=== PATIENT | female | born 1930 | race Caucasian/White ===

== ENCOUNTER 2017-03-08 10:39 | Emergency (ER) | payer MEDICARE, OTHER ==
[~2017-03-08] VITALS: Ht 154.9 cm; Wt 56.8 kg
[~2017-03-08 10:39] MED LIST: ACET-171 PO; ALBU8.5H2 INHALATION; ASCO1500 PO; ASPI-973 PO; CARB1TAB37 PO; CHOL40003 PO; CLIN-78 PO; DOCU-41 PO; FLUO40CA PO; HYDR-4003 PO; LORA0.5T PO; MIRT15TA6 PO; NABU500T PO; NITR0.4T SL; ONDA-53 PO; OXYC-474 PO; PEDI1TAB25 PO; POLY500P23 MC; ROPI12TA PO
[2017-03-08 11:12] VITALS: BP 181/78; PULSE 74; RESP 18; O2SAT 95
--- NOTE | 2017-03-08 11:19 | ED.REPORT ---
HPI-Abd Pain F 40 and Over Date of Service Mar 08, 2017 ED Provider: History of Present Illness: has seen kori for hernia. appointment next Saturday for surgery. hernia is bigger no hernia belt usage. mickey pina is primary care. lives at [facility] in [facility]. also complain of sob when the hernia got bigger around 9 am today. Nursing Notes Stated Complaint: ABD PAIN Chief Complaint: General Complaint Nursing Notes Reviewed: Yes Allergies: Coded Allergies: No Known Allergies (Unverified , 10/05/16) Scheduled Albuterol HFA (Proair HFA) 8.5 Gm Hfa.aer.ad 2 PUFFS INHALATION Q4H Ascorbic Acid (Vitamin C) 1,500 Mg Tablet.er 1,500 MG PO DAILY Aspirin (Aspirin) 81 Mg Tablet 81 MG PO DAILY Carbidopa/Levodopa ER 50-200 mg (Carbidopa/Levodopa ER 50-200 mg) 1 Each Tablet 0.5 TABLET PO BID Cholecalciferol (Vitamin D3) (Vitamin D3) 4,000 Unit Capsule 4,000 UNIT PO DAILY Clindamycin (Clindamycin) 300 Mg Capsule 300 MG PO TID Fluoxetine (Fluoxetine) 40 Mg Capsule 40 MG PO DAILY Mirtazapine (Mirtazapine) 15 Mg Tablet 15 MG PO HS Nabumetone (Nabumetone) 500 Mg Tablet 500 MG PO DAILY Pediatric Multivitamin Comb#30 (Gummies Children Multivitamin) 1 Each Tab.chew 1 EACH PO DAILY Polyethylene Glycol 8000 (Polyethylene Glycol) 500 Gm Powder 17 GM MC DAILY Ropinirole ER (Requip XL) 12 Mg Tablet 12 MG PO DAILY Scheduled PRN Acetaminophen (Acetaminophen) 500 Mg Tablet 500 MG PO Q6H PRN PRN For Fever Docusate Sodium (Colace) 100 Mg Capsule 100 MG PO DAILY PRN PRN For Constipation Hydrocodone-Acetaminophen 5-325 mg (Hydrocodone-Acetaminophen 5-325 mg) 1 Each Tablet 1 TABLET PO Q4H PRN PRN For Pain Lorazepam (Lorazepam) 0.5 Mg Tablet 0.5 MG PO BID PRN PRN For Insomnia Nitroglycerin SL (Nitrostat) 0.4 Mg Tab.subl 0.4 MG SL Q5MIN PRN PRN For Chest Pain Ondansetron (Ondansetron) 4 Mg Tablet 4 MG PO Q4H PRN PRN For Nausea/Vomiting Oxycodone (Roxicodone) 5 Mg Tablet 2.5 MG PO Q4H PRN PRN For Pain General Time Seen by MD: 11:19 Chief Complaint Abdominal pain Hx Obtained From: Patient Sudden in Onset?: No Symptom Duration: Since onset Location: : Abdomen lower Past Medical History Past Medical History parkinson's Denies: Asthma, Diabetes mellitus Past Surgical History abd surgery in 09/2016, mass did not identify any neoplasm Smoking History Former Smoker (quit 57 y) Social History Alcohol Use: Denies alcohol use Occupation [facility] Review of Systems Basic Review of Systems Eyes: Vision NL, No discharge Skin: No bruising, No rash, No itch Psychiatric: Normal thought content Physical Exam Vital Signs Vital Signs (First) Date Time Temp Pulse Resp B/P Pulse Ox O2 Delivery O2 Flow Rate FiO2 03/08/17 11:12 36.2 74 18 181/78 95 Room Air Initial VS: Reviewed, Vital signs normal Head / Eyes: Atraumatic, Normocephalic, PERRL Extremities: Vascular intact, Neuro intact, No swelling, No tenderness Psychiatric: Mood/affect normal, Behavior normal, Normal thought content General/Constitutional: Awake, Alert, No acute distress, Well appearing, Well developed, Well hydrated, Well nourished, Cooperative, Not toxic appearing Respiratory / Chest: Atraumatic, Breath sounds NL, Breath sounds = bilat, No respiratory distress, No rales, No rhonchi Cardiovascular: Heart rate NL, Regular rhythm, Heart sounds NL, No gallop abd is enlarged mainly on left side. no paplable hernia. Back: Atraumatic, Inspection NL, Full range of motion Interpretation & Diagnostics Interpretation & Diagnostics: INDICATIONS: abd hernia? TECHNIQUE: Real-time focused scanning was performed of the abdomen, with image documentation. COMPARISON: [facility], CT, CT ABD PELVIS W CON, 09/10/2016, 12:25. FINDINGS: Ultrasound was performed in the area of interest. No abdominal wall defect is present to suggest ventral hernia. There is a large cystic mass in the mid central abdomen/pelvis measuring 12.0 x 8.3 x 13.5 cm. No free fluid is present. IMPRESSION: Large cystic mass in mid central abdomen/pelvis. No ventral hernia is identified. Dictated by: Alessio Mir M.D. on 03/08/2017 at 13:54 Approved by: Alessio Mir M.D. on 03/08/2017 at 13:58 Lab Results Interpretation Result Diagram: 03/08/17 1145 03/08/17 1145 Test 03/08/17 11:45 White Blood Count 7.0th/mm3 (3.8-10.1) Red Blood Count 3.79mil/mm3 (3.90-5.20) Hemoglobin 12.0g/dL (12.0-15.6) Hematocrit 38.0% (35.0-46.0) Mean Corpuscular Volume 100.3fL (81-100) Mean Corpuscular Hemoglobin 31.7pg (27.0-35.0) Mean Corpuscular Hemoglobin Concent 31.6% (32.0-37.0) Red Cell Distribution Width 14.9% (12.3-15.4) Platelet Count 215bil/L (150-400) Neutrophils (%) (Auto) 77.3% (40-74) Lymphocytes (%) (Auto) 12.5% (14-46) Monocytes (%) (Auto) 7.4% (4-12) Eosinophils (%) (Auto) 2.4% (0-5) Basophils (%) (Auto) 0.3% (0-3) Sodium Level 142mEq/L (134-144) Potassium Level 5.2mEq/L (3.5-5.2) Chloride Level 107mEq/L (97-108) Carbon Dioxide Level 19mmol/L (18-29) Blood Urea Nitrogen 34mg/dL (8-27) Creatinine 0.96mg/dL (0.57-1.00) Estimat Glomerular Filtration Rate 79mL/min (>59) Glucose Level 97mg/dL (60-99) Lactic Acid Level 1.2mmol/L (0.4-2.0) Calcium Level 9.3mg/dL (8.5-10.1) Total Bilirubin 0.2mg/dL (0.0-1.2) Aspartate Amino Transf (AST/SGOT) 28U/L (0-50) Alanine Aminotransferase (ALT/SGPT) 6U/L (0-32) Alkaline Phosphatase 109U/L (25-165) Troponin T < 0.010ug/L (0.0-0.011) Total Protein 7.1g/dL (6.4-8.4) Albumin 4.3g/dL (3.4-5.0) X-Ray Chest Interpretation Chest Xray Interpretation: FINDINGS: Surgical changes and devices: None. Lungs and pleura: Linear densities in the left lung base are likely scars or discoid atelectasis. Lungs are lucent suggesting emphysema. There is a calcified nodule in the left lower lobe likely an old granuloma. Blunting of costophrenic angles may be secondary to small bilateral pleural effusions or pleural scarring. No pneumothorax. Mediastinum: Mediastinal contours are normal. Heart size is normal. Bones and chest wall: Severe scoliosis. Soft tissues appear unremarkable. IMPRESSION: 1. Suspect emphysema. 2. A calcified granuloma in the left lower lobe. 3. Bilateral small pleural effusions versus pleural scarring. 4. Left basilar scars and/or atelectasis. Dictated by: Alessio Mir M.D. on 03/08/2017 at 12:12 Approved by: Alessio Mir M.D. on 03/08/2017 at 12:15 CT Abd / Pelvis Interpretation ROCEDURE: CT ABDOMEN AND PELVIS WITH CONTRAST ([id number]) INDICATIONS: Increase in abdominal pain with suspected incarcerated hernia. TECHNIQUE: After the administration of oral and intravenous contrast, 5 mm thick sections acquired from the diaphragms to the symphysis. 5 mm thick coronal and sagittal reformats were performed. For radiation dose reduction, the following was used: automated exposure control, adjustment of mA and/or kV according to patient size. COMPARISON: [facility], CT, CT ABD PELVIS W CON, 09/10/2016, 12:25. FINDINGS: Image quality: Excellent. ABDOMEN: Lung bases: There is mild linear scarring redemonstrated in the lung bases bilaterally. Heart size is enlarged. Solid organs: There are multiple small low density foci within the liver which are too small to characterize redemonstrated. A small medial focus within segment 7 of the right hepatic lobe measures up to approximately 8 mm, slightly increased from the prior study. There are a few small foci of peripheral enhancement. Findings are suggestive of a small hemangioma. The spleen is normal in size. Multiple small low density lesions are also redemonstrated in the spleen with the largest measuring up to 1.7 cm. This demonstrates attenuation values higher than expected for a simple cyst but appears similar in size compared to the prior study given differences in slice acquisition. There are a few small dependent calcified gallstones in the gallbladder without wall thickening. Biliary system is non-dilated. Pancreas enhances normally. No adrenal nodules. Kidneys are normal in size and enhancement, without hydronephrosis. Peritoneum and bowel: Stomach, small bowel, and colon loops are normal in caliber and wall thickness. There is colonic diverticulosis without acute diverticulitis. Within the sigmoid colon, there is a round partially calcified intraluminal lesion which measures up to approximately 1.6 cm and appears slightly increased in size from the prior study. No free fluid or air. There is a rounded encapsulated focus of fat in the right upper quadrant posterior to the right hepatic lobe with fat stranding suggestive of focal fat necrosis. Nodes and vessels: No retroperitoneal or mesenteric adenopathy by size criteria. There is a mildly prominent right external iliac lymph node adjacent to the inguinal canal measuring up to 0.9 cm in short axis, similar in size to the prior study There is prominent dilatation of the inferior vena cava and visualized iliac veins. 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 The abdominal aorta is normal in caliber. Miscellaneous: No ventral hernias. PELVIS: Genitourinary: Bladder wall thickness is normal. Miscellaneous: There is a large cystic mass redemonstrated in the right lower quadrant measuring approximately 12.7 x 10.6 x 12.1 cm, similar in size compared to the prior study. There is an eccentric soft tissue rind redemonstrated suggesting an ovarian etiology. There is a small fat containing left inguinal hernia. No inguinal adenopathy. Bones: No suspicious bony lesions. There is osteopenia. No vertebral body compression fractures. IMPRESSION: 1. Large cystic mass redemonstrated within the right lower quadrant again suspicious for possible cystic ovarian neoplasm. 2. No evidence of recurrent right inguinal hernia. A small fat containing left inguinal hernia is demonstrated. 3. Colonic diverticulosis without acute diverticulitis. 4. Small round partially calcified lesion redemonstrated in the sigmoid colon in the left lower quadrant is nonspecific and may represent possible impacted stool. 5. Small low-density foci in the liver and spleen are nonspecific and include a small lesion in the posterior right hepatic lobe suggestive of a hemangioma. Recommend attention on followup. 6. 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 7. Cholelithiasis. Dictated by: Federico Shah M.D. on 03/08/2017 at 16:30 Approved by: Federico Shah M.D. on 03/08/2017 at 16:45 US Focused non-OB Pelvis PROCEDURE: US VEINOUS LEG DUPLEX UNILATERAL, LEFT INDICATIONS: leg is numb TECHNIQUE: Real-time imaging, as well as color and pulse Doppler interrogation, were performed of the lower extremity deep veins from the inguinal ligament to the popliteal fossa. COMPARISON: None. FINDINGS: The deep veins are normally compressible, and free of intraluminal thrombus. Color and pulse Doppler demonstrate normal phasic intraluminal flow. There is normal augmentation response to distal compression maneuver. IMPRESSION: No deep venous thrombosis identified within the left lower extremity. Dictated by: Janusz Wyman [facility] Interpreted: Vivienne Yusuf MD on 03/08/2017 at 16:06 Transcribed by: NICOLAS on 03/08/2017 at 16:07 Approved by: Vivienne Yusuf MD, PhD on 03/08/2017 at 16:43 Re-Eval/Medical Decision Med Decision/Clinical Course 86 year old female presents for evualation of "hernia pain" She feels it "popped out" earlier today. States was scheduled to see Kori earlier this year but had the flu. Has an appointment scheduled for next Saturday with DR. Wick to discuss surgery. Abd CT does not reveal any acute changes. Chest x-ray is negative. Labs are unremarkable. No sign of ovarian torsion or c-diff collitis Source of Hx: Old records Discharge & Departure Primary Impression: Mass of right inguinal region Disposition: Home Patient Instructions: High Fiber Diet (ED) Additional Instructions: The labs are looking good. No sign to suggest acute infection. The CT does show the large mass in the pelvic area. It remains the same size. The CT does show a small fat hernia on the left but no sign of strangulation at this time. Please keep the appointment that has been scheduled with Dr. Wick on Saturday. If you have vomiting, fever or pain out of control, return to the ER. The chest x-ray looks good. The ultrasound does not show any evidence of a clot. You do have good blood flow in the left leg. Use percoet 1 up to 3 times a day as needed for pain control. Read the high fiber food list and make sure you have lots of fiber in your diet. Continue with your bowel program. Referrals: Mickey Pina (PCP) Branden Wick MD EDSupervising Provider for APC: Ross Cao MD copies to: Branden Wick MD, Sue ARNP Mar 08, 2017 11:19
[2017-03-08 11:58] LABS: BASOPHILS % (AUTO) 0.3 % (0-3); EOSINOPHILS % (AUTO) 2.4 % (0-5); MONOCYTES % (AUTO) 7.4 % (4-12); Mean Corpuscular Hemoglobin 31.7 pg (27.0-35.0); Mean Corpuscular Volume 100.3 fL (81-100); NEUTROPHILS % (AUTO) 77.3 % (40-74); Platelet Count 215 bil/L (150-400)
--- NOTE | 2017-03-08 12:17 | DRSVH ---
PROCEDURE: X-RAY CHEST, TWO VIEWS ([id number]) INDICATIONS: SHORTNESS OF BREATH TECHNIQUE: 2 views of the chest were acquired. COMPARISON: [facility], CR, XR CHEST 2VW, 08/21/2016, 14:42. FINDINGS: Surgical changes and devices: None. Lungs and pleura: Linear densities in the left lung base are likely scars or discoid atelectasis. Korina ngs are lucent suggesting emphysema. There is a calcified nodule in the left lower lobe likely an old granuloma. Blunting of costophrenic angles may be secondary to small bilateral pleural effusions or pleural scarring. No pneumothorax. Mediastinum: Mediastinal contours are normal. Heart size is normal. Bones and chest wall: Severe scoliosis. Soft tissues appear unremarkable. IMPRESSION: 1. Suspect emphysema. 2. A calcified granuloma in the left lower lobe. 3. Bilateral small pleural effusions versus pleural scarring. 4. Left basilar scars and/or atelectasis. Dictated by: Alessio Mir M.D. on 03/08/2017 at 12:12 Approved by: Alessio Mir M.D. on 03/08/2017 at 12:15
[2017-03-08 12:38] LABS: TROPONIN T < 0.010 ug/L (0.0-0.011)
--- NOTE | 2017-03-08 14:00 | DRSVH ---
PROCEDURE: US ABDOMEN, LIMITED ([id number]) INDICATIONS: abd hernia? TECHNIQUE: Real-time focused scanning was performed of the abdomen, with image documentation. COMPARISON: [facility], CT, CT ABD PELVIS W CON, 09/10/2016, 12:25. FINDINGS: Ultrasound was performed in the area of interest. No abdominal wall defect is present to garzon ggest ventral hernia. There is a large cystic mass in the mid central abdomen/pelvis measuring 12.0 x 8.3 x 13.5 cm. No free fluid is present. IMPRESSION: Large cystic mass in mid central abdomen/pelvis. No ventral hernia is identified. Dictated by: Alessio Mir M.D. on 03/08/2017 at 13:54 Approved by: Alessio Mir M.D. on 03/08/2017 at 13:58
--- NOTE | 2017-03-08 16:07 | DRSVH ---
PROCEDURE: US VEINOUS LEG DUPLEX UNILATERAL, LEFT INDICATIONS: leg is numb TECHNIQUE: Real-time imaging, as well as color and pulse Doppler interrogation, were performed of the lower extr emity deep veins from the inguinal ligament to the popliteal fossa. COMPARISON: None. FINDINGS: The deep veins are normally compressible, and free of intraluminal thrombus. Color and pu lse Doppler demonstrate normal phasic intraluminal flow. There is normal augmentation response to di stal compression maneuver. IMPRESSION: No deep venous thrombosis identified within the left lower extremity. Dictated by: Janusz Wyman [facility] Interpreted: Vivienne Yusuf MD on 03/08/2017 at 16:06 Transcribed by: NICOLAS on 03/08/2017 at 16:07 Approved by: Vivienne Yusuf MD, PhD on 03/08/2017 at 16:43
[2017-03-08 16:13] VITALS: BP 136/69; PULSE 78; RESP 19; O2SAT 97
--- NOTE | 2017-03-08 16:49 | DRSVH ---
PROCEDURE: CT ABDOMEN AND PELVIS WITH CONTRAST ([id number]) INDICATIONS: Increase in abdominal pain with suspected incarcerated hernia. TECHNIQUE: After the administration of oral and intravenous contrast, 5 mm thick sections acquired from the diap hragms to the symphysis. 5 mm thick coronal and sagittal reformats were performed. For radiation do se reduction, the following was used: automated exposure control, adjustment of mA and/or kV accordi ng to patient size. COMPARISON: [facility], CT, CT ABD PELVIS W CON, 09/10/2016, 12:25. FINDINGS: Image quality: Excellent. ABDOMEN: Lung bases: There is mild linear scarring redemonstrated in the lung bases bilaterally. Heart size i s enlarged. Solid organs: There are multiple small low density foci within the liver which are too small to ava acterize redemonstrated. A small medial focus within segment 7 of the right hepatic lobe measures up to approximately 8 mm, slightly increased from the prior study. There are a few small foci of perip heral enhancement. Findings are suggestive of a small hemangioma. The spleen is normal in size. Mu ltiple small low density lesions are also redemonstrated in the spleen with the largest measuring up to 1.7 cm. This demonstrates attenuation values higher than expected for a simple cyst but appears s imilar in size compared to the prior study given differences in slice acquisition. There are a few s mall dependent calcified gallstones in the gallbladder without wall thickening. Biliary system is no n-dilated. Pancreas enhances normally. No adrenal nodules. Kidneys are normal in size and enhancem ent, without hydronephrosis. Peritoneum and bowel: Stomach, small bowel, and colon loops are normal in caliber and wall thickness . There is colonic diverticulosis without acute diverticulitis. Within the sigmoid colon, there is a round partially calcified intraluminal lesion which measures up to approximately 1.6 cm and appears slightly increased in size from the prior study. No free fluid or air. There is a rounded encapsul ated focus of fat in the right upper quadrant posterior to the right hepatic lobe with fat stranding suggestive of focal fat necrosis. Nodes and vessels: No retroperitoneal or mesenteric adenopathy by size criteria. There is a mildly prominent right external iliac lymph node adjacent to the inguinal canal measuring up to 0.9 cm in sh ort axis, similar in size to the prior study There is prominent dilatation of the inferior vena cava and visualized iliac veins. There is mild aneurysmal dilatation of the distal descending thoracic ao rta at the level of the diaphragmatic hiatus measuring up to 3.1 cm. The abdominal aorta is normal i n caliber. Miscellaneous: No ventral hernias. PELVIS: Genitourinary: Bladder wall thickness is normal. Miscellaneous: There is a large cystic mass redemonstrated in the right lower quadrant measuring joel roximately 12.7 x 10.6 x 12.1 cm, similar in size compared to the prior study. There is an eccentric soft tissue rind redemonstrated suggesting an ovarian etiology. There is a small fat containing lef t inguinal hernia. No inguinal adenopathy. Bones: No suspicious bony lesions. There is osteopenia. No vertebral body compression fractures. IMPRESSION: 1. Large cystic mass redemonstrated within the right lower quadrant again suspicious for possible cy stic ovarian neoplasm. 2. No evidence of recurrent right inguinal hernia. A small fat containing left inguinal hernia is d emonstrated. 3. Colonic diverticulosis without acute diverticulitis. 4. Small round partially calcified lesion redemonstrated in the sigmoid colon in the left lower quad rant is nonspecific and may represent possible impacted stool. 5. Small low-density foci in the liver and spleen are nonspecific and include a small lesion in the posterior right hepatic lobe suggestive of a hemangioma. Recommend attention on followup. 6. 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 7. Cholelithiasis. Dictated by: Federico Shah M.D. on 03/08/2017 at 16:30 Approved by: Federico Shah M.D. on 03/08/2017 at 16:45
[2017-03-08] MEDS ORDERED: oxyCODONE-Acetamin 5-325 mg Tablet PO ONE (17:50)
== END 2017-03-08 19:00 | disposition home or self-care (01) ==
LOC: SED 10:39 → EDBD 10:39 → EDUNIT# 10:39 → SED 19:00
DX: R19.09 Other intra-abdominal and pelvic swelling, mass and lump (principal); R06.02 Shortness of breath; Z87.891 Personal history of nicotine dependence; Z79.82 Long term (current) use of aspirin
CPT/HCPCS: 36415; 71020; 74177; 76705; 80053; 83605; 84484; 85025; 93005; 93970; 99285; Q9967

== ENCOUNTER 2017-04-01 05:51 | Day surgery (SDC) | payer MEDICARE, OTHER ==
[~2017-04-01] VITALS: Ht 154.9 cm; Wt 60.1 kg
[2017-04-01] VITALS (16 sets, daily range): BP systolic 100–150; BP diastolic 52–86; PULSE 51–91; RESP 11–22; O2SAT 92–98
[~2017-04-01 05:51] MED LIST changes: +Lactated Ringer's 1,000 ML IV ONE
[2017-04-01] MEDS ORDERED: Lidocaine PF 1% 30 mL Inj ONE (05:52)
[2017-04-01] MEDS ORDERED: fentaNYL-PF 50 mCg/mL 2 mL Inj ONE (05:52)
[2017-04-01] MEDS ORDERED: Rocuronium 10 mg/mL 5 mL Inj ONE (05:52)
[2017-04-01] MEDS ORDERED: Propofol 10,000 mCg/mL 20 mL Inj ONE (05:52)
[2017-04-01] MEDS ORDERED: Succinylcholine Chloride 20 mg/mL 5 mL Inj ONE (05:52)
[2017-04-01] MEDS ORDERED: EPHEDrine/NS 5 mg/mL 5 mL Syringe ONE (05:52)
[2017-04-01] MEDS ORDERED: Dexamethasone 4 mg/mL Inj ONE (05:52)
[2017-04-01] MEDS ORDERED: Ondansetron 2 mg/mL 2 mL Inj ONE (05:52)
[2017-04-01] MEDS ORDERED: CeFAZolin Inj 2 GM in IV Premix 1 EACH IV ONE (06:00)
[2017-04-01] MEDS ORDERED: RANI150C4 PO (06:53)
[2017-04-01] MEDS ORDERED: SENN-133 PO (06:53)
[2017-04-01] MEDS ORDERED: FLUO40CA PO (06:58)
[2017-04-01] MEDS ORDERED: DOCU250C2 PO (06:58)
[2017-04-01] MEDS ORDERED: OXYC-474 PO (07:04)
[2017-04-01] MEDS ORDERED: PARO20TA5 PO (07:04)
--- NOTE | 2017-04-01 07:15 | PCM.HPANE ---
Patient Data Surgeon Admitting Provider: Attending Provider:Branden Wick MD Primary Care Physician:Tanisha Shepherd Other Provider:Russell Wan Anesthesia Reason for Visit Pelvic Mass, Calculus Of Gallbladder Ht/WT & BMI Height (Feet): 5 Height (Inches): 1.00 Weight (Kilograms): 60.1 Body Mass Index 25.00 Allergies Coded Allergies: No Known Allergies (Unverified , 10/05/16) Past Anesthesia History Anesthesia History: Denies:: Anesthesia Reactions, Fam Anesthesia Reaction Diabetes History Hx Diabetes?: No MRSA MRSA: No Medications Blood Thinner: Aspirin Home Meds Incl Beta Micaela: No Reported Medications Oxycodone (Roxicodone)5 Mg Tablet2.5 Mg PO Q4H PRN For Pain Ref 0 04/01/17 Paroxetine 20 Mg Nvqwhk60 Mg PO DAILY 30 Days Ref 0 04/01/17 Docusate Sodium 250 Mg Defkoks839 Mg PO BID Ref 0 04/01/17 Sennosides (Senna)8.6 Mg Tablet2 Tab PO BID 04/01/17 Ranitidine 150 Mg Qrpcffl849 Mg PO BID Ref 0 04/01/17 Acetaminophen 500 Mg Fdjpms370 Mg PO Q6H PRN For Fever 09/19/16 Nitroglycerin SL (Nitrostat)0.4 Mg Tab.subl0.4 Mg SL Q5MIN PRN For Chest Pain # 1 BOTTLE 09/19/16 Albuterol HFA (Proair HFA)8.5 Gm Hfa.aer.ad2 Puffs INHALATION Q4H #1 INHALER 09/19/16 Ondansetron 4 Mg Tablet4 Mg PO Q4H PRN For Nausea/Vomiting 09/19/16 Hydrocodone-Acetaminophen 5-325 mg 1 Each Tablet1 Tablet PO Q4H PRN For Pain Ref 0 09/19/16 Mirtazapine 15 Mg Dgtdrl86 Mg PO HS Ref 0 09/19/16 Lorazepam 0.5 Mg Tablet1 Mg PO BID PRN For Insomnia Ref 0 09/19/16 Carbidopa/Levodopa ER 50-200 mg 1 Each Tablet0.5 Tablet PO BID 09/19/16 Clindamycin 300 Mg Rcjbtrb965 Mg PO TID Ref 0 09/19/16 Cholecalciferol (Vitamin D3) (Vitamin D3)4,000 Unit Capsule4,000 Unit PO DAILY 09/19/16 Ascorbic Acid (Vitamin C)1,500 Mg Tablet.er1,500 Mg PO DAILY 09/19/16 Polyethylene Glycol 8000 (Polyethylene Glycol)500 Gm Hrdlom21 Gm MC DAILY 09/19/16 Nabumetone 500 Mg Zdhnjd133 Mg PO DAILY 30 Days 09/19/16 Aspirin 81 Mg Wfcdlk23 Mg PO DAILY Ref 0 09/19/16 Pediatric Multivitamin Comb#30 (Gummies Children Multivitamin)1 Each Tab.chew1 Each PO DAILY 09/19/16 Discontinued Reported Medications Fluoxetine 40 Mg Vwzfpka30 Mg PO DAILY Ref 0 04/01/17 Ropinirole ER (Requip XL)12 Mg Wdcjht82 Mg PO DAILY Ref 0 09/19/16 Fluoxetine 40 Mg Aflcxvn35 Mg PO DAILY Ref 0 09/19/16 Docusate Sodium (Colace)100 Mg Zgxpjza211 Mg PO DAILY PRN For Constipation Ref 0 09/19/16 Discontinued Scripts Oxycodone (Roxicodone)5 Mg Tablet2.5 Mg PO Q4H PRN For Pain #20 TABLET Ref 0 Prov:Branden Wick MD 10/08/16 Last Time Dose Received Takes oxycodone about 4 times/dd Took carbadopa/levadopa today Takes ativan twice/dd History History of ENT Problems?: Yes HEENT History: Positive for:: Cataracts (right eye) Hearing Problem Denture Type: None Teeth Condition: Within Normal Limits Hx of Heart Problems?: No Cardiovascular History: Denies:: Congestive Heart Failure Hypertension Hx of Respiratory Problem?: Yes Respiratory History: Denies:: Oxygen Administration Tuberculosis Use of C-PAP Machine Hx Neurologic Problems?: Yes Neurological History: Positive for:: CVA (2008) Parkinson's Disease (caregiver states spasmodic body movements have been increasing) Denies:: Alzheimer's Disease Multiple Sclerosis Seizures Hx of GI Problems?: Yes Other GI Pertinent History: cystic mass in pelvis current admission problem Hx of Problems?: Yes Genitourinary History: Denies:: Urinary Tract Infection (hx of) Female Hx: Denies:: Currently (hysterectomy) Pelvic Inflammatory Problems with Breasts? Skin History: Denies:: History Skin Disorders? 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) Musculoskeletal Trauma (hx of bilateral foot surgery) Hx of Psycho/Social Problems?: Yes Psycho Social History: Positive for:: Anxiety Hx Depression Hx Surgeries?: Yes (hyst/bladder sling, rt/left foot surgery, right total knee , hernia) Hx Any Other Health Problems?: Yes Other History: Denies:: Cancer Thyroid Disease Hx Diabetes: No Hx Alcohol Use: NoHx Substance Use: No Smoking Status: Former Smoker Have You Smoked inLast 12 mo: No Stop/Bang S-Snoring: Do You Snore Loudly: No T-Tired: feel tired, fatigued: Yes O-Obsered: Observed not breath: No P-Blood Pressure: treated: No B- Body Mass Index > 35 kg/m2: No A- Age over 50: Yes N- Neck Large Circumference: No G- Gender Male: No ALMA Total Score: 2 Risk Assessment Category Category 1A: Patient has history of documented sleep apnea, and HAS NOT received any narcotic, sedative or anesthesia administration during this stay. Category 1B: Patient has history of documented sleep apnea, and HAS received any narcotic , sedative or anesthesia administration during this stay Category 2: Patient has SUSPECTED Obstructive Sleep Apnea, and HAS received any narcotic , sedative or anesthesia administration during this stay. Category 3: Patient has SUSPECTED Obstructive Sleep Apnea and HAS NOT received narcotic, sedative or anesthesia administration during this stay. Category 4: Outpatient in Procedural Areas with known sleep apnea or who screen positive for High Risk via the STOP/BANG questionnaire. Exam Exam Vital Signs Vital Signs Date Time Temp Pulse Resp B/P Pulse Ox O2 Delivery O2 Flow Rate FiO2 04/01/17 06:33 35.8 71 16 150/81 96 Room Air General Appearance: Alert, Oriented X3 HEENT/AIRWAY: MP 2, Neck Movement (FROM) Lungs: Clear to Auscultation, Clear to Percussion Heart: Exam Unremarkable, Regular Rate/Rhythm Meds/Labs/Diagnostics Admission Meds Current Medications Lactated Ringer's (Lr) 1,000 ml @ 120 mls/hr Q8H20M ONCE IV Last administered on 04/01/17t 06:32; Start 04/01/17 at 05:00; Stop 04/01/17 at 13:19 Plan Impression Patient chart reviewed, patient interviewed and anesthestic plan with risks, benefits, and alternatives discussed, and informed consent obtained. ASA Physical Status: ASA3 Severe Disease Anesthetic Plan: GA Bene/Risks/Altern/Consents: Yes HP Complete Prior to Induction: Yes George Ambrocio MD April 01, 2017 07:12
[2017-04-01] MEDS ORDERED: Bupivacaine-MPF 0.5% 30 mL Inj INJ ONE (08:01)
[2017-04-01] MEDS ORDERED: Iopamidol-300 50 mL Inj IV ONE (08:01)
[2017-04-01] MEDS ORDERED: Ondansetron 2 mg/mL 2 mL Inj IVPUSH PRN ×2 (08:05→11:05)
[2017-04-01] MEDS ORDERED: Lactated Ringer's 1,000 ML IV SCH (08:05)
[2017-04-01] MEDS ORDERED: HYDROmorphone 1 mg/mL Inj IVPUSH PRN (08:05)
[2017-04-01] MEDS ORDERED: Labetalol 5 mg/mL 4 mL Inj IV PRN (08:05)
[2017-04-01] MEDS ORDERED: Atropine 0.4 mg/mL Inj IVPUSH PRN (08:05)
[2017-04-01] MEDS ORDERED: EPHEDrine Sulfate 50 mg/mL Inj IVPUSH PRN (08:05)
[2017-04-01] MEDS ORDERED: Lactated Ringer's 500 ML IV PRN (08:05)
[2017-04-01] MEDS ORDERED: Phenylephrine 10,000 mCg/mL Inj IVPUSH PRN (08:05)
[2017-04-01] MEDS ORDERED: fentaNYL-PF 50 mCg/mL 2 mL Inj IVPUSH PRN (08:05)
[2017-04-01 09:12] LABS: APPEARANCE,URINE HAZY (CLEAR,HAZY); COLOR,URINE STRAW (YELLOW)
[2017-04-01 09:13] LABS: OCCULT BLOOD,URINE NEGATIVE (NEGATIVE); UROBILINOGEN,URINE NORMAL (NORMAL)
[2017-04-01] MEDS ORDERED: MetoCLOpramide 5 mg/mL 2 mL Inj IVPUSH PRN (11:05)
[2017-04-01] MEDS ORDERED: HYDROmorphone 0.5 mg/0.5 mL iSecure Syringe IVPUSH PRN (11:05)
[2017-04-01] MEDS: Albuterol 2.5 mg/3 mL Inhalation Solution NEB SCH ×3 (11:05→19:05)
--- NOTE | 2017-04-01 11:15 | PCM.SURGPO ---
Immediate Operative Note Date of Surgery: April 01, 2017 Pre Operative Diagnosis Cystic Pelvic Mass, Cholelithiasis Post Operative Diagnosis Cystic Pelvic mass, Cholelithiasis Procedure Laparoscopic Excision of Pelvic Mass, Lap Cholecystectomy with cholangiogram Surgeon and Filtration Plant Mechanic Surgeon: Branden Wick MD Assistants: Fie Hammer, ИРИНА Peraza MS3 Findings R Pelvic Cystic Mass Attached to the retroperitoneum. Cholangiogram okay Complications There were no periprocedural complications identified. Surgical Specimen Removed: Yes Specimen sent to Pathology: Yes Anesthetic Administered: GA Grafts, Implants: None Output, Estimated Blood Loss: 5 Blood Admin during surgery: No Attending Statement Tassel Clipper listed was medically necessary for the successful completion of the case Branden Wick MD April 01, 2017 11:15
--- NOTE | 2017-04-01 11:50 | DRSVH ---
PROCEDURE: X-RAY OPERATIVE CHOLANGIOGRAM ([id number]) INDICATIONS: PELVIC PAIN, CALCULUS OF GALLBALDDER COMPARISON: [facility], CT, CT ABD PELVIS W CON, 03/08/2017, 15:52. FINDINGS: Biliary ducts: The surgeon injected contrast into the biliary ducts after cannulation of the cystic duct stump. Visualized intra- and extrahepatic bile ducts are normal in caliber, without strictures. Rounded intraluminal filling defect seen within the mid common hepatic duct which may represent gas bubble given the appearance. No evidence for iatrogenic ductal injury. 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 Duodenum: Contrast flows promptly through the sphincter of Oddi into the duodenum, which appears nor mal in caliber. IMPRESSION: 1. Probable gas bubble within the extrahepatic bile duct. Correlate with real-time examination. 2. 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 Dictated by: Janusz Wyman Thomas Interpreted: Cristian Gunderson MD on 04/01/2017 at 11:48 Transcribed by: RAMONA on 04/01/2017 at 11:50 Approved by: Cristian Gunderson M.D. on 04/01/2017 at 16:25
--- NOTE | 2017-04-01 12:07 | PCM.ANEP1 ---
Post Anesthesia Phase 1 PACU Phase 1 Assessment Date of Service: April 01, 2017 Vital Signs Vital Signs Date Time Temp Pulse Resp B/P Pulse Ox O2 Delivery O2 Flow Rate FiO2 04/01/17 11:45 36.3 68 16 127/62 98 Simple Mask 8 04/01/17 11:40 68 16 130/62 98 Simple Mask 8 04/01/17 11:35 66 16 120/58 98 Simple Mask 8 04/01/17 11:30 66 16 121/61 98 Simple Mask 8 04/01/17 11:25 70 17 112/58 98 Simple Mask 8 04/01/17 11:18 36.6 69 16 135/59 98 Simple Mask 8 04/01/17 06:33 35.8 71 16 150/81 96 Room Air Anesthetic Administered: GA Level of Alertness: Sleepy, easy to arouse DOMÍNGUEZ's with Equal Strength: Yes Pain: No Nausea or Vomiting: No Cardiovascular Function and Hy: Yes Airway Device: Oralpharangeal Airway Oxygen Delivery: Simple Mask Lungs: Clear to Auscultation, Clear to Percussion Complications: No Follow up Care: No George Ambrocio MD April 01, 2017 12:07
[2017-04-01 12:11] LABS: Mean Corpuscular Hemoglobin 32.1 pg (27.0-35.0); Mean Corpuscular Volume 100.9 fL (81-100)
--- NOTE | 2017-04-01 13:06 | NUR ---
POST-OP Patient received from PACU via a gurney. Transferred to the bed with assist. On O2 at 7 LPM via a simple mask. Will wean off O2. 6 bandaid dressing noted in her abdomen. Via FELDT scale patients pain level is 0/10. Denies nausea. No emesis noted. Denies SOB. Unable to orient at this time due to drowsiness. Bed alarm is on at this time for safety. Will continue to monitor.
[2017-04-01] MEDS: Carbidopa-Levodopa 50-200 mg ER12 Tablet PO SCH (17:41)
--- NOTE | 2017-04-01 21:51 | OP ---
[address] [address] OPERATIVE REPORT PATIENT: RYLIE IVERSON : 1930 MR#: [id number] ADMIT: 04/01/2017 JOB ID: [id number] DATE OF SURGERY: 04/01/2017 PREOPERATIVE DIAGNOSIS(ES): Cystic mass in the pelvis and cholelithiasis. POSTOPERATIVE DIAGNOSIS(ES): Cystic mass in the pelvis and cholelithiasis. PROCEDURE PERFORMED: Laparoscopic cholecystectomy with intraoperative cholangiogram. Laparoscopic excision of cystic mass in the pelvis. SURGEON: Branden Wick MD. EDGE MOLDER: CHRISTIAN Jaimes, MS3. ESTIMATED BLOOD LOSS: 5 mL. COMPLICATIONS: She had transient high end-tidal carbon dioxide in the middle of the case, prompting us to exsufflate and ventilate her before resuming the operation, otherwise, she did okay. INDICATIONS: The patient is an 86-year-old lady who had a hysterectomy and bladder sling through a lower midline incision a long time ago. She noticed swelling on the left side of her abdominal wall consistent with a hernia and she presented to me for possible repair. I obtained a CT scan of the abdomen and pelvis which showed cystic mass in the pelvis and the right inguinal region. I removed the right inguinal mass in September, but she continued to have abdominal symptoms and after discussing the risks, benefits, and alternatives, she is here today to have the laparoscopic resection of the pelvic mass, along with laparoscopic cholecystectomy with cholangiogram. PROCEDURE DETAILS: She was placed in a supine position. Underwent smooth induction of general anesthesia. A Menjivar catheter was placed. Abdomen was prepped and draped in the usual sterile fashion. Surgical time-out was undertaken using safety checklist, and all were in agreement. I began by entering the abdomen using a supraumbilical incision using open Giovanny technique. After obtaining pneumoperitoneum, I placed two 5 mm ports, one in the epigastrium, another one in the left lateral abdomen under direct vision. We visualized the large pelvic cystic structure and then aspirated it with a needle and started dissecting it off the retroperitoneum. It was not attached to the bladder or the bowel. I was able to mobilize it off the peritoneum to some extent but after which the retroperitoneal vasculature was densely adherent to it, prompting me to use LigaSure to transect them with good hemostasis. After removing the lesion, detaching it from the retroperitoneum, I used some FloSeal in the retroperitoneal bed for good hemostasis. I was able to visualize the ureter laterally which appeared far from the area of surgical dissection. I then directed my attention to the gallbladder, placing additional 5 mm ports in the right upper quadrant under direct vision. I retracted the gallbladder cephalad and to the right, dissecting the triangle of Calot. I then clipped the cystic duct towards the specimen and obtained a cholangiogram which showed normal anatomy. I then doubly clipped the cystic duct and was proceeding to dissect the gallbladder off the liver bed. At that time, we had some high end-tidal carbon dioxide prompting us to stop the operation temporarily. We did not notice any undue bleeding. After some inflation, we were able to resume the operation with the lower insufflation pressures and I then detached the gallbladder from the liver, placed it in an EndoCatch bag, and removed it. I also removed the cystic pelvic mass in an EndoCatch bag. The sponge we used in the pelvis putting pressure on the retroperitoneal vasculature was also removed. All the instrument counts were found to be correct x2. After that, the abdomen was desufflated. The supraumbilical port site fascia was closed with [id number] 0-Vicryl suture. The skin was reapproximated with 4-0 Monocryl. Steri-Strips and sterile dressing were applied. Patient was recovered from anesthesia and was taken to the recovery room in a stable condition.
[2017-04-02 00:14] VITALS: PULSE 88; RESP 22; O2SAT 92
[2017-04-02] MEDS: Albuterol 2.5 mg/3 mL Inhalation Solution NEB SCH ×4 (00:14→11:50)
--- NOTE | 2017-04-02 00:35 | NUR ---
Pain/flatulence Patient states leg and abdomen pain is 7/10 on pain scale. Oxycodone 5mg PO administered. Patient requesting Lorazepam but medication is not on emar. Will contact physician re home med. Patient experiencing gas/flatulence. Explain to patient this was normal post abdominal surgery. Patient cooperative with care. Call light within reach. Care continues.
[2017-04-02 04:33] VITALS: PULSE 77; RESP 20; RESP 22; O2SAT 94
[2017-04-02 06:01] VITALS: BP 121/54; PULSE 85; RESP 12; O2SAT 91
[2017-04-02 06:50] LABS: BASOPHILS % (AUTO) 0.1 % (0-3); EOSINOPHILS % (AUTO) 0.3 % (0-5); MONOCYTES % (AUTO) 11.1 % (4-12); Mean Corpuscular Volume 100.3 fL (81-100); NEUTROPHILS % (AUTO) 73.6 % (40-74); Platelet Count 180 bil/L (150-400)
--- NOTE | 2017-04-02 07:49 | PCM.DISURG ---
Surgical Discharge Instruction Date of Service April 02, 2017 Dates of Hospitalization Date of Hospital Admission Providers Admitting Physician: Primary Care Physician: Tanisha Shepherd Attending Physician: Branden Wick MD Discharge Diagnosis Post Operative diagnosis Cystic Pelvic mass, Cholelithiasis s/p Laparoscopic Resection of Pelvic Mass, Cholecystectomy with Cholangiogram Diet Discharge Diet: No restrictions Activity Discharge Activity-General: Be up and about Dressing and Incisional Care Dressing Care: Remove outer dressing after 24 hrs Hygiene: May shower Follow Up Plan Follow-up appointment: Weeks (2) Call your provider for: Fever, Chills, Shortness of breath, Increasing abdominal pain, Nausea, Vomiting, Wound redness, Increasing wound pain, Warmth to touch, Discharge @ incision, pus discharge Branden Wick MD April 02, 2017 07:49
[2017-04-02 08:15] VITALS: PULSE 75; RESP 22; O2SAT 89
[2017-04-02] MEDS ORDERED: Polyethylene Glycol (PEG) 17 Gm Powder PO SCH (08:30)
[2017-04-02] MEDS ORDERED: PARoxetine 20 mg Tablet PO SCH (08:30)
--- NOTE | 2017-04-02 09:02 | PCM.PNSURG ---
Subjective Date of Service: April 02, 2017 Visit Information: Pelvic Mass Resection & Laparoscopic Cholecystectomy with 04/01/17 Post-Op Day # 1 Subjective: Tolerating diet, Passing flatus Objective Vital Sign- Last 8 Hours Date Time Temp Pulse Resp B/P Pulse Ox O2 Delivery O2 Flow Rate FiO2 04/02/17 08:15 75 22 89 Room Air 04/02/17 06:01 36.4 85 12 121/54 91 Nasal Cannula 2.00 04/02/17 04:51 Supplement Oxygen 04/02/17 04:33 77 20 94 Nasal Cannula 2.00 Intake and Output- Last 8 Hour 04/02/17 Cumulative From/Thru 07:00 03/27/17 15:15 - 04/02/17 06:08 Intake Total 0 ml 1750 ml Output Total 100 ml 410 ml Balance -100 ml 1340 ml Intake Oral 0 ml 500 ml IV Total 1250 ml Output Urine Total 100 ml 400 ml Estimated Blood Loss 10 ml # Bowel Movements 0 0 Abdomen: Soft, Other (Some what bloated) SURGICAL WOUND : Wound Location/Description Dressings dry Result Diagram: 04/02/1751904/02/1720 Diagnostics: Abd Xray looks okay with a lot of stool Assessment & Plan Impression Doing well Problems: Plan Ambulate,Incentive spirometry Wean off Oxygen Regular diet Enema/suppository/ laxatives Discharge Home Branden Wick MD April 02, 2017 09:02
[2017-04-02] MEDS: Carbidopa-Levodopa 50-200 mg ER12 Tablet PO SCH (10:05)
--- NOTE | 2017-04-02 11:05 | DRSVH ---
PROCEDURE: X-RAY ACUTE ABDOMINAL SERIES ([id number]) INDICATIONS: Postop Distension TECHNIQUE: One view chest and two views of the abdomen were acquired. COMPARISON: , CT, CT ABD PELVIS W CON, 03/08/2017, 15:52. [facility], CR, XR CHEST 2VW, 03/08/2017, 11:42. FINDINGS: Surgical changes and devices: None. Chest: There is chronic blunting of the costophrenic angles and scarlike opacities unchanged from gilles or chest radiograph.. Heart size is normal. No pleural effusions. No pneumoperitoneum. Abdomen: Moderate amount of colonic stool is present otherwise gas pattern is normal. Multiple abdom inal and pelvic calcifications redemonstrated. Bones: No suspicious bony lesions. Mild S-shaped scoliosis redemonstrated. IMPRESSION: 1. Chronic blunting of the costophrenic angles and bibasilar scarring redemonstrated. 2. Moderate fecal loading. 3. Abdominal/pelvic calcifications similar to prior CT scan. Dictated by: Janusz Wyman RR Interpreted: Vivienne Yusuf MD on 04/02/2017 at 10:56 Transcribed by: NICOLAS on 04/02/2017 at 11:00 Approved by: Vivienne Yusuf MD, PhD on 04/02/2017 at 15:06
[2017-04-02 11:50] VITALS: PULSE 76; RESP 20; O2SAT 95
--- NOTE | 2017-04-02 13:11 | NUR ---
DC'd IV catheter, fully intact.
--- NOTE | 2017-04-02 14:33 | PCM.DC.SUR ---
Discharge Summary Date of Service: Date of Hospital Admission: 04/01/2017 Date of Operation(s): 04/01/2017 Date of Discharge: April 02, 2017 at 14:05 Diagnosis at Time of Discharge Primary diagnoses: 1. Cystic mass of the pelvis 2. Cholelithiasis 3. Obstipation Other chronic conditions: 1. Parkinson disease 2. Hypertension 3. Hyperlipidemia 4. Osteoarthritis 5. Anemia 6. Anxiety 7. Melanoma of the skin 8. Osteoporosis 9. Colon polyps Problems: Operation 1. Laparoscopic cholecystectomy with intraoperative cholangiogram. 2. Laparoscopic excision of cystic mass in the pelvis. Brief History and Physical: Radhika Valdez is a 86-year-old lady who has had a hysterectomy and a bladder sling through a lower midline incision long time ago. She noticed a swelling on the left side of her abdominal wall consistent with a hernia probably 10 years ago. She was told it does not need to be repaired and most recently a couple of years ago she was seen at [facility] at which point she was again told that she is not a surgical candidate and was given an abdominal binder. Her hernia had gotten significantly bigger even since that visit and had become debilitating enough that when she presented on 09/05/2016 she felt she was not able to go on with her life like this. A CT of the abdomen and pelvis was ordered to evaluate the hernia which showed cystic masses in the pelvis and right inguinal region. Her case was discussed in the multidisciplinary tumor conference and a subtotal excision of the inguinal mass was performed on 10/08/2016. When seen in follow-up on 10/24/2016, she was not sure she was having any abdominal symptoms anymore and decided to monitor the cystic mass in the pelvis without intervention. She returned with symptoms in December and a laparoscopic resection of the pelvic mass was planned, but ended up canceling twice, once due to a urinary tract infection, and another time due to upper respiratory tract infection. She presented to the emergency room on 03/08/2017 with abdominal pain and was discharged after evaluation. Consultants: None Hospital Course: The patient was admitted and underwent the above-mentioned operations without complication. She was stable for discharge the following day. At the time of discharge the patient was tolerating a diet and passing flatus. Flat plate abdominal films demonstrated colon filled with stool. Pathology: Pending Disposition: The patient was discharged on her first postsurgical day. Follow-up Plan: She will follow-up in the office with Dr. Wick in 2 weeks. Acetaminophen (Acetaminophen) 500 Mg Tablet 500 MG PO Q6H PRN PRN For Fever ( Reported) Albuterol HFA (Proair HFA) 8.5 Gm Hfa.aer.ad 2 PUFFS INHALATION Q4H (Reported) Ascorbic Acid (Vitamin C) 1,500 Mg Tablet.er 1,500 MG PO DAILY (Reported) Aspirin (Aspirin) 81 Mg Tablet 81 MG PO DAILY (Reported) Carbidopa/Levodopa ER 50-200 mg (Carbidopa/Levodopa ER 50-200 mg) 1 Each Tablet 0.5 TABLET PO BID (Reported) Cholecalciferol (Vitamin D3) (Vitamin D3) 4,000 Unit Capsule 4,000 UNIT PO DAILY (Reported) Clindamycin (Clindamycin) 300 Mg Capsule 300 MG PO TID (Reported) Docusate Sodium (Docusate Sodium) 250 Mg Capsule 250 MG PO BID (Reported) Hydrocodone-Acetaminophen 5-325 mg (Hydrocodone-Acetaminophen 5-325 mg) 1 Each Tablet 1 TABLET PO Q4H PRN PRN For Pain (Reported) Lorazepam (Lorazepam) 0.5 Mg Tablet 1 MG PO BID PRN PRN For Insomnia (Reported) Mirtazapine (Mirtazapine) 15 Mg Tablet 30 MG PO HS (Reported) Nabumetone (Nabumetone) 500 Mg Tablet 500 MG PO DAILY (Reported) Nitroglycerin SL (Nitrostat) 0.4 Mg Tab.subl 0.4 MG SL Q5MIN PRN PRN For Chest Pain (Reported) Ondansetron (Ondansetron) 4 Mg Tablet 4 MG PO Q4H PRN PRN For Nausea/Vomiting ( Reported) Oxycodone (Roxicodone) 5 Mg Tablet 2.5 MG PO Q4H PRN PRN For Pain (Reported) Paroxetine (Paroxetine) 20 Mg Tablet 20 MG PO DAILY (Reported) Pediatric Multivitamin Comb#30 (Gummies Children Multivitamin) 1 Each Tab.chew 1 EACH PO DAILY (Reported) Polyethylene Glycol 8000 (Polyethylene Glycol) 500 Gm Powder 17 GM MC DAILY ( Reported) Ranitidine (Ranitidine) 150 Mg Capsule 150 MG PO BID (Reported) Sennosides (Senna) 8.6 Mg Tablet 2 TAB PO BID (Reported) copies to: Tanisha Shepherd Fred H PA-C April 02, 2017 14:33
--- NOTE | 2017-04-02 14:48 | NUR ---
DISCHARGE Patient discharged home with daughter in law who will transport patient to her residence. Patient given verbal and written home care instructions and agreed to understanding them and denied any further questions when asked. Pt was given suppository earlier today and had large bowel movement. Patient is instructed to continue bowel regimen at home as abd xray this am showed a large amount of stool in colon. Pt will follow up with surgeon as directed. Patient with known large left wall hernia verified by Doctor so it is not a hematoma .
--- NOTE | 2017-04-05 13:31 | PATH ---
SURGICAL PATHOLOGY Attending Physician:Branden Wick MD CASE STATUS: Signed Out PATIENT NAME: RYLIE IVERSON PID: [id number] : 1930 DATE COLLECTED:04/01/2017 20:59 SPECIMEN: 1: Skin, Cyst 2: Gallbladder CLINICAL HISTORY: PELVIC MASS CHOLECYSTITIS 1). CYSTIC MASS AT THE PELVIS 2). GALLBLADDER FINAL DIAGNOSIS: 1. 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 Negative for atypia and malignancy. 2. Gallbladder, Laparoscopic Cholecystectomy: Gallbladder with cholelithiasis. ICD10: N83.2 NOTE: Part 1: These slides were reviewed by a second pathologist, who concurs with the above interpretation. GROSS DESCRIPTION: The specimens are received in formalin, labeled with the patient's name, and sublabeled as the following: (1) cystic mass at the pelvis; (2) gallbladder. (1) The specimen consists of a smith-enriquez semi-translucent opened multilocular cyst (9.5 x 9.5 x 7.5 cm). The wall contains a focally smith-yellow rubbery thickened area (3.5 x 2.5 x 0.3 cm). The lining is smooth and flat with no excrescences identified. Section code: (1A-1E) cyst, patient registration representative. (2) The specimen consists of an intact gallbladder (length-9.6 cm, diameter-3.4 cm) with a patent cystic duct. The serosa is green-martin smooth and shiny. The lumen contains dark green viscous bile and multiple pale yellow and black solid firm multifaceted partially friable calculi (0.7 x 0.5 x 0.1 cm, each approximately 0.3 x 0.2 x 0.1 cm). The mucosa is green and velvety. The wall is up to 0.2 cm thick. No nodules, masses or lesions are identified. Section code: (2A) gallbladder, patient registration representative. 04/02/17 ICD-9 CODES: CPT CODES: 2: 78273, 21626 Electronically Signed Out Gricelda Mcnamara MD [facility] [address] [place] [address] Division, [place] [address] Technical component performed at [facility], [address], [place], [address]
== END 2017-04-02 14:05 | disposition home or self-care (01) ==
LOC: SAS 05:51 → OSC 12:17 → SAS 04-02 14:05
PROVIDERS: ATTEND Student in an Organized Health Care Education/Training Program
DX: K80.20 Calculus of gallbladder without cholecystitis without obstruction (principal); N83.8 Other noninflammatory disorders of ovary, fallopian tube and broad ligament; G20 Parkinson's disease; I10 Essential (primary) hypertension; E78.5 Hyperlipidemia, unspecified; D64.9 Anemia, unspecified; F41.9 Anxiety disorder, unspecified; M81.0 Age-related osteoporosis without current pathological fracture; Z79.51 Long term (current) use of inhaled steroids
CPT/HCPCS: 27043; 36415; 47563; 74022; 74300; 80053; 81000; 85025; 85027; 87077; 87086; 87088; 87186; 94640; 94664; J0330; J0690; J1100; J2405; J3010; J7120; J7613; Q9967